=== PATIENT | female | born 1935 | race Caucasian/White ===

== ENCOUNTER 2017-01-31 10:53 | Inpatient (IN) | payer OTHER ==
[2017-01-31] VITALS (9 sets, daily range): BP systolic 150–181; BP diastolic 45–873
[~2017-01-31] VITALS: Ht 167.6 cm; Wt 64.9 kg
[~2017-01-31 10:53] MED LIST: ACTOS15 MG PO; AMLODIPINE-BEN1 EACH PO; AZO CRANBERRY1 EACH PO; CEFDINIR300 MG PO; CENTRUM SILVER1 EAC3 PO; COZAAR100 MG PO; CRESTOR5 MG PO; DIOVAN40 MG PO; ECOTRIN325 MG PO; HYDROCHLOROTHIA25 MG PO; LOPRESSOR25 MG PO; LOSARTAN POTASS50 MG PO; LOW DOSE ASPIRI81 M1 PO; METOPROLOL TAR100 MG PO; MICRO-K8 ME2 PO; NIASPAN500 MG PO; PRAVACHOL40 MG PO; PRILOSEC20 MG PO; PRILOSEC40 MG PO; PROBENECID500 MG PO; PROBIOTIC1 EAC1 PO; TOPROL XL50 MG PO; TUSSIONEX PENN473 ML PO; TYLENOL EXTRA500 MG PO; VITAMIN D31000 UNIT PO
[2017-01-31 11:33] LABS: HEMATOCRIT 30.8 % (36.0-46.0); MCH 29.2 PG (29.0-34.0); MCHC 32.1 G/DL (30.0-36.0); MCV 90.9 FL (83-99); MEAN PLAT.VOLUME 10.5 uM^3 (9.5-12.4); PLATELET COUNT 234 K/uL (156-360); RBC DIS.WIDTH-CV 15.3 % (11.8-14.6); RBC DIS.WIDTH-SD 50.9 % (39-53); RED BLOOD COUNT 3.39 M/uL (3.80-5.20); WHITE BLOOD COUNT 7.8 K/uL (4.1-10.2)
[2017-01-31 11:45] LABS: CHLORIDE 106 mEq/L (99-109); POTASSIUM 4.2 mEq/L (3.7-5.4); SODIUM 139 mEq/L (136-147)
[2017-01-31 11:46] LABS: GLUCOSE 166 mg/dL (70-99)
[2017-01-31 11:48] LABS: ANION GAP 13 MEQ/L (2-14)
[2017-01-31 11:50] LABS: GFR ESTIMATE (CALCULATED) 38 mL/min/
[2017-01-31 11:51] LABS: UREA NITROGEN (BUN) 26 mg/dL (9-23)
[2017-01-31 11:55] LABS: TROP-I INTERPRETATION NEGATIVE; TROPONIN-I 0.06 ng/mL (0.0-0.30)
[2017-01-31] MEDS ORDERED: LOSARTAN POTASS50 MG PO (12:34)
[2017-01-31] MEDS ORDERED: BUSPAR5 MG PO (12:35)
[2017-01-31] MEDS ORDERED: LEVO-T25 MCG PO (12:35)
[2017-01-31] MEDS ORDERED: TYLENOL REGULA325 MG PO (12:37)
[2017-01-31 21:11] LABS: BASE EXCESS -6.4 mEq/L (-3 to +3); BICARBONATE 22.8 mEq/L (22-26); METHEMOGLOBIN 1.7 % (0-1.5); PCO2 64 mm Hg (35-45); PO2 46 mm Hg (80-100)
[2017-01-31 21:11] LABS: TROP-I INTERPRETATION NEGATIVE; TROPONIN-I 0.08 ng/mL (0.0-0.30)
[2017-01-31 21:12] LABS: COMMENTS - BLOOD GASES A+C+; FI02 100 %; O2 FLOW 6 L/MIN; SITE RR
[2017-01-31 21:13] LABS: DEVICE NC AND NONREBREATHER; pH 7.16 (7.35-7.45)
[2017-01-31 22:18] LABS: BASE EXCESS -2.3 mEq/L (-3 to +3); BICARBONATE 23.2 mEq/L (22-26); CARBOXY HGB 1.9 % (0-5); METHEMOGLOBIN 1.5 % (0-1.5); PCO2 42 mm Hg (35-45); PO2 51 mm Hg (80-100); SITE LR; pH 7.35 (7.35-7.45)
[2017-01-31 22:19] LABS: COMMENTS - BLOOD GASES A+C+; DEVICE 840 MASK VENT; FI02 100 %; MODE SPONT; PEEP 8 CM/H20; PRES. SUPPORT 12 CM/H2O; TOTAL RESP RATE 33 resp/min
[2017-01-31 23:09] LABS: TROP-I INTERPRETATION NEGATIVE; TROPONIN-I 0.07 ng/mL (0.0-0.30)
[2017-01-31 23:20] LABS: METH RESISTANT S AUREUS PCR NEGATIVE (NEGATIVE)
[2017-01-31 23:21] LABS: PROBE CHECK PASS; SPECIMEN PROCESSING CONTROL PASS
[2017-02-01] VITALS (23 sets, daily range): BP systolic 0–154; BP diastolic 0–58
[2017-02-01 00:10] LABS: POINT-OF-CARE METER ID UU14174217
[2017-02-01 05:41] LABS: BASE EXCESS 0.7 mEq/L (-3 to +3); BICARBONATE 25.4 mEq/L (22-26); CARBOXY HGB 1.5 % (0-5); COMMENTS - BLOOD GASES A+C+; DEVICE MASK VENT; FI02 60 %; METHEMOGLOBIN 1.4 % (0-1.5); PCO2 40 mm Hg (35-45); PO2 57 mm Hg (80-100); SITE LR; TOTAL RESP RATE 27 resp/min; pH 7.41 (7.35-7.45)
[2017-02-01 05:42] LABS: PEEP 8 CM/H20; PRES. SUPPORT 12 CM/H2O
[2017-02-01 06:22] LABS: MCH 28.8 PG (29.0-34.0); MCV 92.9 FL (83-99); MEAN PLAT.VOLUME 10.6 uM^3 (9.5-12.4); PLATELET COUNT 183 K/uL (156-360); RBC DIS.WIDTH-CV 15.2 % (11.8-14.6); RBC DIS.WIDTH-SD 51.9 % (39-53); RED BLOOD COUNT 3.12 M/uL (3.80-5.20)
[2017-02-01 06:49] LABS: ANION GAP 10 MEQ/L (2-14); CHLORIDE 105 MEQ/L (99-109); GFR ESTIMATE (CALCULATED) 33 mL/min/; GLUCOSE 192 mg/dL (70-99); POTASSIUM 4.1 MEQ/L (3.7-5.4); SAMPLE HEMOLYSIS CHECK 0; SAMPLE ICTERIC CHECK 0; SAMPLE LIPEMIA CHECK 0; SODIUM 140 MEQ/L (136-147); UREA NITROGEN (BUN) 32 mg/dL (9-23)
[2017-02-01] MEDS ORDERED: NORVASC10 MG PO (13:25)
[2017-02-01 22:10] LABS: POINT-OF-CARE METER ID UU14162636
[2017-02-02] VITALS (19 sets, daily range): BP systolic 0–155; BP diastolic 0–111
[2017-02-03] VITALS (21 sets, daily range): BP systolic 127–163; BP diastolic 31–60
[2017-02-03 04:54] LABS: EOSINOPHIL (%) 0 % (0-5); IMMATURE GRANULOCYTE (%) 1.1 % (0.0-0.7); IMMATURE GRANULOCYTE COUNT 0.2 K/uL; INSTRUMENT ABS NEUTROPHIL CT 12.1 K/uL; LYMPHOCYTE COUNT 0.9 K/uL (1.0-2.8); MCH 28.8 PG (29.0-34.0); MCHC 31.9 G/DL (30.0-36.0); MCV 90.3 FL (83-99); MEAN PLAT.VOLUME 10.6 uM^3 (9.5-12.4); MONOCYTE (%) 3.7 % (3-12); MONOCYTE COUNT 0.5 K/uL (0-0.8); NEUTROPHIL (%) 88.6 % (45-76); NEUTROPHIL COUNT 12.1 K/uL (1.8-6.4); PLATELET COUNT 208 K/uL (156-360); RBC DIS.WIDTH-CV 15.4 % (11.8-14.6); RBC DIS.WIDTH-SD 51.3 % (39-53); RED BLOOD COUNT 2.99 M/uL (3.80-5.20); WHITE BLOOD COUNT 13.7 K/uL (4.1-10.2)
[2017-02-03 05:01] LABS: CHLORIDE 103 mEq/L (99-109); POTASSIUM 4.1 mEq/L (3.7-5.4); SODIUM 138 mEq/L (136-147)
[2017-02-03 05:02] LABS: GLUCOSE 162 mg/dL (70-99)
[2017-02-03 05:04] LABS: ANION GAP 14 MEQ/L (2-14)
[2017-02-03 05:06] LABS: GFR ESTIMATE (CALCULATED) 20 mL/min/
[2017-02-03 05:10] LABS: UREA NITROGEN (BUN) 64 mg/dL (9-23)
[2017-02-04] VITALS (24 sets, daily range): BP systolic 128–160; BP diastolic 39–66
[2017-02-04 06:36] LABS: ANION GAP 11 MEQ/L (2-14); CHLORIDE 101 MEQ/L (99-109); GFR ESTIMATE (CALCULATED) 25 mL/min/; POTASSIUM 3.7 MEQ/L (3.7-5.4); SAMPLE HEMOLYSIS CHECK 0; SAMPLE ICTERIC CHECK 0; SAMPLE LIPEMIA CHECK 0; SODIUM 140 MEQ/L (136-147); UREA NITROGEN (BUN) 61 mg/dL (9-23)
[2017-02-04 08:05] LABS: GLUCOSE 81 mg/dL (70-99)
[2017-02-05] VITALS (24 sets, daily range): BP systolic 129–163; BP diastolic 38–70
[2017-02-05 04:03] LABS: POINT-OF-CARE METER ID UU14174217
[2017-02-05 05:51] LABS: POINT-OF-CARE METER ID UU14174217
[2017-02-05 08:34] LABS: ANION GAP 11 MEQ/L (2-14); CHLORIDE 105 MEQ/L (99-109); GFR ESTIMATE (CALCULATED) 29 mL/min/; SAMPLE HEMOLYSIS CHECK 0; SAMPLE ICTERIC CHECK 0; SAMPLE LIPEMIA CHECK 0; SODIUM 145 MEQ/L (136-147); UREA NITROGEN (BUN) 61 mg/dL (9-23)
[2017-02-05 08:35] LABS: GLUCOSE 118 mg/dL (70-99); POTASSIUM 2.9 MEQ/L (3.7-5.4)
[2017-02-05 12:01] LABS: POINT-OF-CARE METER ID UU14174217
[2017-02-05 17:37] LABS: POINT-OF-CARE METER ID UU14174217
[2017-02-06] VITALS (20 sets, daily range): BP systolic 103–161; BP diastolic 37–79
[2017-02-06 00:51] LABS: POINT-OF-CARE METER ID UU13113731; POINT-OF-CARE USER ID RADDRS44
[2017-02-06 05:29] LABS: POINT-OF-CARE METER ID UU14174217; POINT-OF-CARE USER ID RADDRS44
[2017-02-06 06:16] LABS: EOSINOPHIL COUNT 0.1 K/uL (0-0.3); HEMATOCRIT 26.4 % (36.0-46.0); IMMATURE GRANULOCYTE (%) 0.6 % (0.0-0.7); IMMATURE GRANULOCYTE COUNT 0.1 K/uL; INSTRUMENT ABS NEUTROPHIL CT 8.4 K/uL; LYMPHOCYTE COUNT 0.8 K/uL (1.0-2.8); MCH 28.3 PG (29.0-34.0); MCHC 31.1 G/DL (30.0-36.0); MONOCYTE (%) 4.2 % (3-12); MONOCYTE COUNT 0.4 K/uL (0-0.8); NEUTROPHIL (%) 86.1 % (45-76); NEUTROPHIL COUNT 8.4 K/uL (1.8-6.4); PLATELET COUNT 224 K/uL (156-360); RBC DIS.WIDTH-CV 15.2 % (11.8-14.6); RBC DIS.WIDTH-SD 51.4 % (39-53); WHITE BLOOD COUNT 9.7 K/uL (4.1-10.2)
[2017-02-06 06:24] LABS: ANION GAP 12 MEQ/L (2-14); CHLORIDE 105 MEQ/L (99-109); GFR ESTIMATE (CALCULATED) 29 mL/min/; GLUCOSE 125 mg/dL (70-99); MAGNESIUM 1.7 mg/dl (1.3-2.7); POTASSIUM 3.7 MEQ/L (3.7-5.4); SAMPLE HEMOLYSIS CHECK 0; SAMPLE ICTERIC CHECK 0; SAMPLE LIPEMIA CHECK 0; SODIUM 145 MEQ/L (136-147); UREA NITROGEN (BUN) 64 mg/dL (9-23)
[2017-02-06 11:34] LABS: BASE EXCESS 6.6 mEq/L (-3 to +3); CARBOXY HGB 1.7 % (0-5); pH 7.42 (7.35-7.45)
[2017-02-06 11:35] LABS: BICARBONATE 31.8 mEq/L (22-26); COMMENTS - BLOOD GASES C+; DEVICE MASK VENT; FI02 60 %; MODE SPONT; PCO2 49 mm Hg (35-45); PO2 112 mm Hg (80-100); SITE LB; TOTAL RESP RATE 22 resp/min
[2017-02-06 11:36] LABS: CONTINUOUS POS AIRWAY PRESSURE 5 cm H2O; PRES. SUPPORT 12 CM/H2O
[2017-02-06 11:47] LABS: POINT-OF-CARE METER ID UU14174217
[2017-02-06 18:06] LABS: POINT-OF-CARE METER ID UU14174217
[2017-02-07] VITALS (13 sets, daily range): BP systolic 97–136; BP diastolic 35–84
[2017-02-07 00:50] LABS: POINT-OF-CARE METER ID UU14174217; POINT-OF-CARE USER ID RADDRS44
[2017-02-07 06:17] LABS: POINT-OF-CARE USER ID RADDRS44
== END 2017-02-07 20:00 | DRG 189 ==
LOC: EME → EDBD 10:53 → EDOF 13:19 → 4WEST 13:19 → 4EAST 16:10 → 4WEST 21:33
PROVIDERS: Emergency Medicine; Hospitalist; Internal Medicine; Internal Medicine Pulmonary Disease; Physician Assistant Medical; Surgery Surgical Critical Care
DX: J96.02 Acute respiratory failure with hypercapnia (principal); J18.9 Pneumonia, unspecified organism; J81.0 Acute pulmonary edema; J90 Pleural effusion, not elsewhere classified; J44.9 Chronic obstructive pulmonary disease, unspecified; I25.10 Atherosclerotic heart disease of native coronary artery without angina pectoris; I27.2 Other secondary pulmonary hypertension; I50.9 Heart failure, unspecified; E11.9 Type 2 diabetes mellitus without complications; I10 Essential (primary) hypertension; I34.0 Nonrheumatic mitral (valve) insufficiency; I35.0 Nonrheumatic aortic (valve) stenosis; Z95.1 Presence of aortocoronary bypass graft; Z51.5 Encounter for palliative care; E78.5 Hyperlipidemia, unspecified; Y95 Nosocomial condition; Z66 Do not resuscitate; Z74.01 Bed confinement status; J96.01 Acute respiratory failure with hypoxia
CPT/HCPCS: 36600; 71010; 71020; 71250; 80048; 80202; 82803; 82948; 83735; 83880; 84145 90; 84484; 85025; 85027; 87040; 87086; 87641; 93005; 93306; 93970; 94002; 94003; 94010; 94640; 94640 76; 94760; 94799; 97530 GP; 99202; 99281; 99285; J0456; J0692; J0696; J1650; J1815; J1940; J2060; J2250; J2270; J2405; J2930; J3370; J3480; J7050